=== PATIENT | female | born 1930 | race African-American/Black ===

== ENCOUNTER 2017-01-05 19:15 | Inpatient (IN) | payer OTHER ==
[~2017-01-05] VITALS: Ht 162.6 cm; Wt 63.5 kg
--- NOTE | ~2017-01-05 | CNG ---
[facility] [place] [address] CYTO-NONGYN REPORT PROCEDURE Name: KWASI DEL RIO Room #: 548-I DIS IN M.R.#: [id number] Admission: 01/05/17 Date of : [birth year] Discharge: 01/13/17 Report #: [id number] Path Case #: [id number] CYTOPATHOLOGY REPORT COLLECTION DATE: 01/11/2017 RECEIVED DATE: 01/11/2017 SUBMITTING PHYS: Dr. Saul Bear OTHER PHYS: CLINICAL HISTORY: Epigastric pain, Abd pain, Neurogenic bladder, N/V. SPECIMEN(S) RECEIVED: A.Pleural fluid, Right * * * * * * * * * * * * FINAL DIAGNOSIS: Pleural fluid, right: - No malignant epithelial cells identified. - Mesothelial cells and occasional predominantly chronic inflammatory cells identified. COMMENT: Properly controlled immunohistochemical stains are performed on the cell block. (Block A1) Calretinin: highlights scattered mesothelial cells CD68: stains numerous small collections of histiocytes Nate-EP4: non-reactive (CLW:; d/t: 01/13/17) PATHOLOGIST: Marisa Rivero M.D. REPORT ELECTRONICALLY SIGNED BY: Marisa Rivero M.D. DATE/TIME: 01/13/2017 16:37 * * * * * * * * * * * * GROSS PATHOLOGY: A. Pleural fluid, Right: The specimen is submitted unfixed, labeled "Kwasi Del Rio". Received by the Cytology Department is 15 mL of cloudy bright red fluid out of a total volume of 750 ml. One ThinPrep slide and a cell block were prepared. (clt 01.11.2017) SENIOR MECHANICAL DEVELOPMENT ENGINEER(S): LIV Gunter([facility]) INITIAL CPT CODE(S): A; 69559, 21173, 71708, 49204, 93543 Professional services performed by [facility] at [facility] [address] , [place], [place] [id number] [place] [address] [place] [address] CYTO-NONGYN REPORT PROCEDURE Name: KWASI DEL RIO Room #: 548-I [facility] IN ..#: [id number] Admission: 01/05/17 Date of : [birth year] Discharge: 01/13/17 Report #: [id number] Path Case #: [id number] Technical services performed by [facility] at [address] [place] [address]., [address], [place] [address]. [address], [address] [place] [address] PHONE: [phone] DIRECTOR: Shashi Knight M.D. * * * END OF REPORT * * *
--- NOTE | ~2017-01-05 | HC ---
[facility] [place] [address] CONSULTATION Name: KWASI MARKS Room #: 548-I ADM IN M.R.#: [id number] Admission: 01/05/17 Attend Phys: Saul Bear DO Discharge: Date of : [birth year] Report #: [id number] THIS REPORT FOR: //name// CC: Pepe Weber MD FAM unknown Saul Pang MD REQUESTING PHYSICIAN: Saul Bear DO. REASON FOR CONSULTATION: Possible right upper lobe spiculated mass and possible cancer. HISTORY OF PRESENT ILLNESS: The patient is an 86-year-old female who evidently first began her evaluation at [facility] earlier this year when they noticed some changes on her chest area. We do not have those records. We do have records from [facility] where she was admitted for chest pain. Recently, she was on diversion. There they had a CT scan which supposedly compared to an earlier CAT scan on December 14, this one done was on January 05, showed a right upper lobe spiculated subpleural nodule measuring 2.2 cm; some slightly enlarged mediastinal adenopathy including a pretracheal, I believe, and subcarinal and also possible retrocardiac/esophageal mass. I have since then had a chance to talk with Dr. Aryan Pang, who talked with a doctor who had seen her over at [facility]. Supposedly, at the time of EBUS, they thought this spiculated right upper lung mass was too small to biopsy. It was also not PET evident on a PET scan they had done, which we also have no records. There is also a pretracheal cyst and also some other lymph nodes that were worse and were biopsied were and were reportedly negative. Note we do have that PET scan or that EBUS bronchoscopy report. The patient states that she maybe had some type of EGD at [facility] about a year ago. The patient is here for just for a generalized chest discomfort that is fairly nonspecific, may be a hiatal hernia. She has no prior cancer. Has not had any significant weight change lately. No fevers, no chills. Does have the cardiac chest discomfort. She reports of having had some right upper quadrant epigastric discomfort, nausea and vomiting, though her vomiting did not relieve her discomfort. This began a few days prior to admission. She also had been having pain on inspiration and coughing. Has been drinking some liquids, but unable to eat solids. The patient reports a history of peptic ulcer disease and a hiatal hernia. PAST MEDICAL HISTORY: Past history is notable for the recent right upper lobe spiculated mass with questionable changes including small pleural effusions. Also a history of hypertension; subtle pulmonary embolus, I think, it was diagnosed about on 12/14. It got resolved on a CT scan from 01/05/[address] [place] [address] CONSULTATION Name: KWASI MARKS Room #: 548-I ADM IN M.R.#: [id number] Admission: 01/05/17 Attend Phys: Saul Bear DO Discharge: Date of : [birth year] Report #: [id number] [facility]. Also a history of anemia with hemoglobin of 9.4 recently. Also a history of anxiety and also history of chronic renal insufficiency with a creatinine around 1.2 to 1.4, with an estimated creatinine clearance of around 35-55. ALLERGIES: None known. MEDICATIONS: Prior to this included Lovenox, Neurontin, lisinopril, isosorbide and Zantac. 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 She is originally from [place], had 9 children, smokes and stopped drinking alcohol about 10-[address] FAMILY HISTORY: It sounds like there is some heart disease in family remembers. No one with cancer that she could specifically tell, but I think one of her children may have had a seizure disorder, one had a heart attack. LABORATORY DATA: Lab work here is notable for a creatinine of 1.2. Liver functions normal. Calcium is 8. Albumin 2.4. White count 12 on admission; hemoglobin currently 9.4, down from 12.1 on admission; MCV 82 and platelets 165,000. Differential fairly normal. U/A without red cells. Total bilirubin was normal. PHYSICAL EXAMINATION: GENERAL: The patient appears her stated age. VITAL SIGNS: Height is 5 feet 4, 162.6 cm. Weight 140 pounds, which is 63.5 kilograms. Blood pressure 172/66, O2 sat 95, respirations 16, pulse 82 and temperature 99. It has been up as high as 100.1. HEENT: Face is symmetrical. Dentition poor. LUNGS: Have some slight rhonchi in the right base. No wheezes. LYMPHATICS: No enlarged lymph nodes in the supraclavicular, cervical, axillary or inguinal region. ABDOMEN: Soft, without masses. EXTREMITIES: Without clubbing or cyanosis. There may be trace edema. ASSESSMENT AND PLAN: 1. Right upper lobe spiculated subpleural nodule (PET at [facility] was not very avid and they thought this was too small to biopsy) with a pretracheal lymph node (negative by FNA at [facility] EBUS), retroesophageal mass (cyst appearance on EBUS at [facility]), mediastinal lymph node enlargement (calcifications present at [facility] on their exam) and small bilateral right greater than left pleural effusions (not tapped yet) - this is the information received verbally from [facility] [place] [address] [place] [address] CONSULTATION Name: KWASI MARKS Room #: 548-I ADM IN .R.#: [id number] Admission: 01/05/17 Attend Phys: Saul Bear DO Discharge: Date of : [birth year] Report #: [id number] Bird here who had talked with a court magistrate at [facility], though we are still trying to get the PET scan and EBUS. I talked with Dr. Pang that at this time we are mostly worried about the right spiculated nodule that at this time was too small to biopsy. The patient was supposed to have followup at [facility] today, but is admitted here. We may consider a thoracentesis of right versus left to see if there is malignancy or infection. We may also need to continue a followup of the right upper lobe nodule and biopsy if it enlarges. At this time, we do not know for sure if this is cancer. We will also need to wait to see what the splenic changes on the CAT scan seen here look like on the PET scan there that may need followup. 2. Subtle pulmonary embolism this year at [facility], may be in November, on Lovenox. We will check ultrasound of the legs that was talked about, but never done at [facility]. That way, if we stop the Lovenox, we will have some idea whether there is a clot at risk to emboli before we stop the Lovenox, if we do. 3. Pleural effusion. Consider tap for cytology. 4. Hypertension, meds. 5. Tobacco abuse. Encouraged cessation. 6. Nerves. The patient is reportedly on Neurontin by report, but no history of neuropathy. 7. Renal insufficiency. Watch medicines and diet closely. 8. Anemia. We will check iron studies, TSH, B12, folate and retic count. <ELECTRONICALLY SIGNED> By: Mihir Olson MD 01/12/17 0802 [id number] [id number] Mihir Olson MD /nt
--- NOTE | ~2017-01-05 | HC ---
[facility] [address] CONSULTATION Name: KWASI MARKS Room #: 548-I ADM IN M.R.#: [id number] Admission: 01/05/17 Attend Phys: Saul Bear DO Discharge: Date of : [birth year] Report #: [id number] THIS REPORT FOR: //name// CC: Pepe Weber MD FAM unknown Saul Bear DO DATE OF SERVICE: 01/09/2017 REFERRING PROVIDER: Saul Bear DO REASON FOR CONSULTATION: Chest pain and a history of lung mass. HISTORY OF PRESENT ILLNESS: Our group was asked to see the patient in consultation while hospitalized at [facility]. An 86-year-old woman with a past pulmonary history significant for tobacco abuse, who was recently hospitalized at [facility] for chest pain, was found to have pulmonary embolism. During that stay, also was noted to have a 2-cm right upper lobe spiculated nodule and some mediastinal adenopathy. By her report, apparently had undergone what sounds like an endobronchial ultrasound evaluation and possible biopsy, but was inconclusive. She was continued on enoxaparin injections for anticoagulation of her pulmonary emboli; however, continued to have persistent chest pain, presented to the Emergency Department, was discharged with what she explains as esophageal reflux symptoms, but continued to have chest pain and was subsequently admitted here for further management. She has been under evaluation by the gastroenterology service for the last 4 days. No significant GI abnormalities being found; however, concerned over ongoing chest problems accounting for her chest pain, prompting consultation. The patient has noted some scant hemoptysis, associated with scant sputum production. Denies any fevers, chills or sweats. Denies any significant shortness of breath at this time, does have some ongoing chest pain she relates to the sternal area, sometimes to the epigastric area. Somewhat sharp in nature, but does also feel like a pressure sensation, notes somewhat better since admission. It sounds like related to morphine administration. Currently, she is resting comfortably in bed. ALLERGIES: None known. PAST MEDICAL HISTORY: 1. History of pulmonary nodule with mediastinal adenopathy as described. Ongoing workup by her cash management clerk at [facility]. The patient does not know the name. 2. History of tobacco abuse. 3. Hypertension. 4. Recent pulmonary embolism noted in 11/2016. [facility] [address] [place] [address] CONSULTATION Name: KWASI MARKS Room #: 548-I [facility] IN ..#: [id number] Admission: 01/05/17 Attend Phys: Saul Bear DO Discharge: Date of : [birth year] Report #: [id number] OUTPATIENT MEDICATIONS: Include: 1. Lovenox 100 mg daily. 2. Oxycodone. 3. Hydrocodone. 4. Lisinopril. 5. Gabapentin. 6. Ranitidine. SOCIAL HISTORY: The patient is an active smoker. No significant alcohol consumption. FAMILY HISTORY: Noncontributory due to advanced age. REVIEW OF SYSTEMS: As described in HPI, otherwise negative. PHYSICAL EXAMINATION: VITAL SIGNS: Afebrile, pulse 80s, respiratory rate 18 and blood pressure 172/78. GENERAL: This is an elderly woman, no distress. EARS, NOSE AND THROAT: Clear oropharynx. Mallampati I airway. No thrush. NECK: Supple, no lymphadenopathy. LUNGS: Markedly diminished in the right base with some mild bronchial breath sounds greater than left. No wheezes are appreciated. CARDIOVASCULAR: Heart was regular. No murmurs noted. ABDOMEN: Soft and nontender. No masses or hepatosplenomegaly. EXTREMITIES: Without edema. They are warm with 2+ pulses. LABORATORY DATA: White blood cell count 12,000, hemoglobin 9, hematocrit 28 and platelet count 165. Sodium 139, potassium 3.6, chloride 107, bicarbonate 21, BUN 12, creatinine 1.2 and glucose 93. DIAGNOSTIC DATA: Chest x-ray done yesterday morning reveals small bilateral pleural effusions, right greater than left, with cardiomegaly. No masses noted. IMPRESSION: 1. Chest pain of unclear etiology, likely related to pulmonary emboli and/or pleural effusions noted on CT abdomen. There appeared to be a subcarinal mass, which may be responsible; however, it appears that this may be a large hiatal hernia, but it is unclear. Would further evaluate chest abnormalities and may need thoracentesis to further evaluate. 2. Recent pulmonary embolism. Continue Lovenox for now for anticoagulant therapy. 3. Pulmonary nodule with associated mediastinal adenopathy. Obtain further records regarding recent, what sounds like, bronchoscopy with endobronchial [address] [address] CONSULTATION Name: KWASI MARKS Room #: 548-I ADM IN M.R.#: [id number] Admission: 01/05/17 Attend Phys: Saul Bear DO Discharge: Date of : [birth year] Report #: [id number] ultrasound and possible biopsies from [facility] on the [place]. 4. Hemoptysis. May require repeat bronchoscopy to further evaluate. Suspect it may be related to ongoing anticoagulant therapy, in addition to some other pulmonary process. Possibly lower respiratory infection versus a malignant process. 5. Hypertension. 6. Pleural effusions. PLAN: As outlined above. We will follow along with you. Thank you for requesting our suggestions. <ELECTRONICALLY SIGNED> By: Aryan Pang MD 01/11/17 1434 1541 [id number] Aryan Pang MD /nt
--- NOTE | ~2017-01-05 | HC ---
[facility] [place] [address] CONSULTATION Name: KWASI MARKS Room #: 548-I ADM IN M.R.#: [id number] Admission: 01/05/17 Attend Phys: Saul Bear DO Discharge: Date of : [birth year] Report #: [id number] THIS REPORT FOR: //name// CC: FAM unknown Saul Bear DO DATE OF SERVICE: 01/06/2017 GASTROENTEROLOGY CONSULTATION PATIENT OF: Saul Bear DO. HISTORY OF PRESENT ILLNESS: This is a very pleasant 86-year-old -Mexican female whom I am asked to evaluate for right upper quadrant and epigastric pain associated with nausea and vomiting. The patient states that vomiting did not relieve her pain whatsoever. She says this all began a few days ago after she tried to lift a really heavy flower pot up on top of her television cabinet. Since then, she says she has been having severe pain with deep inspiration and coughing and has had no appetite. She has been drinking some liquids, but not able to eat anything. The patient has a history of peptic ulcer disease and hiatal hernia. She was recently seen in the [facility] emergency room, I believe, as recently as yesterday or the day before and was apparently discharged home. She states that she has had either an EGD of some sort or some type of upper GI imaging that involved a scope, possibly a bronchoscopy. We will try to obtain those records from [facility]' emergency room. The patient and her friend are unfortunately not good historians. The patient also tells me that she is being treated for a blood clot in her lung and gets injections twice a day of Lovenox. She was diagnosed recently in the emergency room at [facility] with a neurogenic bladder and a Martinez catheter was placed for relief of distended urinary bladder. PAST MEDICAL HISTORY: In addition to the above, includes hypertension, pulmonary embolism, peptic ulcer disease, the neurogenic bladder and the hiatal hernia. There were some abnormalities on some imaging that she has had that suggested that she might have a problem in her lungs besides the pulmonary embolism. PAST SURGICAL HISTORY: Significant for the cholecystectomy. ALLERGIES: No known drug allergies. MEDICATIONS: Prior to admission included Lovenox 100 units at bedtime, Percocet, Waymart, lisinopril, Neurontin and Zantac. SOCIAL HISTORY: The patient does smoke every day. She drinks alcohol [address] [address] CONSULTATION Name: KWASI MARKS Room #: 548-I [facility] IN .R.#: [id number] Admission: 01/05/17 Attend Phys: Saul Bear DO Discharge: Date of : [birth year] Report #: [id number] occasionally, usually on special occasions only. FAMILY HISTORY: I will have to clarify with her. She says that she herself personally has had a colonoscopy that was normal in the past, but she cannot remember when it was. REVIEW OF SYSTEMS: She denies any dysphagia or odynophagia. She has had gastroesophageal reflux symptoms in the past, but not recently. She does have a large hiatal hernia that apparently was seen on the CT scan she had here. She has a history of peptic ulcer disease, diagnosed many years ago. She said it has never bothered her. She has had nausea and vomiting. She has had substernal and right sternal chest pain recently after lifting a heavy flower pot as above. She complains of pain that radiates straight through into her back, from front to back. She also complains of right-sided chest pain that radiates around her right side and is worse with deep inspiration, that I suspect may be related to a skeletal injury. She complains of pain in the right upper quadrant and the epigastrium as well. She denied any constipation or diarrhea. She denies any hematemesis, hematochezia or melena. She denies having any jaundice or hepatitis or pancreatitis, but she has had her gallbladder out, she says. She denies any fevers or chills. PHYSICAL EXAMINATION: GENERAL: Reveals a well-developed, well-nourished 86-year-old -Mexican female, who is in obvious distress and really cannot get comfortable, as she is wiggling around in bed, trying to alleviate this chest pain that she is having. HEENT: She is normocephalic, atraumatic and anicteric. HEART: Irregularly irregular this morning. I asked if she had an irregular heartbeat and she thought that at times she did have an irregular heartbeat, but I do not know that the words atrial fibrillation rang any bells with her. She is a difficult historian. She does seem to have a systolic murmur in the aortic listening post area. LUNGS: Clear to auscultation now in all oropeza. ABDOMEN: Soft. Bowel sounds are present in all 4 quadrants. There is no palpable organomegaly or mass. There is tenderness in the epigastrium and the right upper quadrant to deep palpation. There is no rebound or guarding. EXTREMITIES: Warm and dry. NEUROLOGIC: She appears to be grossly intact, without lateralizing signs, but I did not test her extensively neurologically. RADIOLOGIC DATA: CT scan of the abdomen shows a mass in the posterior mediastinum, consistent with a large hiatal hernia. She has small bilateral pleural effusions and mild basilar pulmonary atelectasis and infiltrates. She has a density in her left kidney with a well-defined vascular margin that is concerning for a renal infarct. She has bilateral cysts in her kidneys and she did have marked bladder distention. She does have a Martinez catheter in place now. [facility] [address] [place] [address] CONSULTATION Name: KWASI MARKS Room #: 548-I ADM IN ..#: [id number] Admission: 01/05/17 Attend Phys: Saul Bear DO Discharge: Date of : [birth year] Report #: [id number] SIGNIFICANT LABORATORY DATA: Lactic acid level is 1.2. BUN is 16 and creatinine is 1.4 on admission. Her AST on admission was 442, ALT 285 and alkaline phosphatase 153. Total bilirubin is 1.2, direct bilirubin is 0.6. Lipase was 69. Her white blood cell count this morning of 11.2, up from 9.2; her hemoglobin went for 12.1 yesterday down to 11.5 and platelet count is stable at 188,000. IMPRESSION: 1. Substernal and right-sided chest pain that radiates around into her back after she lifted a heavy flower pot up on top of her television recently. She did not feel anything pop, but has had pain in this distribution since she lifted that flower pot. She states it is worse with inspiration and coughing. It is also very tender to palpation at the sternal junction on the right side in the middle of her chest. 2. Nausea and vomiting, right upper quadrant and epigastric pain. The vomiting did not affect the epigastric and right upper quadrant pain in any way. The patient has had a cholecystectomy. 3. Elevated liver enzymes, diffuse. 4. Probable neurogenic bladder. 5. Large hiatal hernia. 6. 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 This is a small segment that is involved. 7. History of hypertension. 8. Pulmonary embolism recently. The patient is on Lovenox. 9. History of peptic ulcer disease. 10. Long-term smoker. RECOMMENDATIONS AND PLANS: I suggested the patient had possibly EGD. She believes that she had this done this past week at [facility] on the [place]; she is not sure. We will obtain the records from [facility] instead today and I will review those and see what has been done there. It does sound like this might be a musculoskeletal pain in part from lifting the heavy vase. However, the patient does have a recently diagnosed pulmonary embolism as well that may be causing some amount of pain in her chest. With regard to her elevated liver enzymes, we will obtain an ultrasound of the liver and PIPIDA scan to make sure that there is ductal patency. The patient is status post cholecystectomy. We will continue PPIs. Suggest evaluation of left renal infarction. Recommend smoking cessation. [address] [address] CONSULTATION Name: KWASI MARKS Room #: 548-I ADM IN M.R.#: [id number] Admission: 01/05/17 Attend Phys: Saul Bear DO Discharge: Date of : [birth year] Report #: [id number] We will repeat her liver enzymes in the morning. We are going to obtain some right rib x-rays on her to evaluate this pain with inspiration. Thank you very much once again for allowing me to participate in her care, Dr. Bear. <ELECTRONICALLY SIGNED> By: Adeline Pro DO 01/07/17 0016 1003 1717 Adeline Pro DO /nt
--- NOTE | ~2017-01-05 | EKG ---
[address] [place] [address] ELECTROCARDIOGRAM REPORT Name: KWASI MARKS Room #: 548-I ADM IN M.R.#: [id number] Admission: 01/05/17 Attend Phys: Saul Bear DO Discharge: Date of : [birth year] Report #: [id number] THIS REPORT FOR: //name// [facility] Test Date: 2017-01-06 Test Time: 12:23:39 Pat Name: KWASI MARKS Department: Room: 548 I Gender: F Pediatric Clinical Dietician: Shagufta POSADAS : 1930 Requested By: Saul Bear Order Number: [id number] MD: Waylon Martinez Measurements Intervals [place] Rate: 77 P: 57 [place]: 142 QRS: 42 QRSD: 87 T: 118 QT: 351 QTc: 398 Interpretive Statements Sinus rhythm Atrial premature complex Nonspecific ST and T wave abnormality No previous ECG available for comparison Electronically Signed On 01-07-2017 8:26:51 CDT by Waylon Martinez [email or web address] <ELECTRONICALLY SIGNED> By: Waylon Martinez MD, [facility] 01/07/17 0826 1223 1223 Waylon Martinez MD, FACC /EPI
--- NOTE | ~2017-01-05 | 2DMMODE ---
[facility] [place] [address] 2 D/M-MODE ECHOCARDIOGRAM Name: KWASI MARKS Room #: 548-I ADM IN .R.#: [id number] Admission: 01/05/17 Attend Phys: Saul Bear, Discharge: Date of : [birth year] Date of Service: 01/10/17 1457 Report #: [id number] THIS REPORT FOR: //name// APPROVED REPORT EXAM: Comprehensive 2D, Doppler, and color-flow Echocardiogram Patient Location: Bedside/Room 548 Blood Pressure: 170/60 mmHg HR: 82 bpm Rhythm: NSR Other Information Study Quality: Adequate Indications Chest pain, recent PE. Hx: HTN, tobacco abuse. 2D Dimensions RVDd: 30.83 mm LVEF(%): 51.54 (>50%) IVSd: 9.69 (7-11mm) LVOT Diam: 19.94 (18-24mm) LVDd: 42.52 mm PWd: 9.88 (7-11mm) Ascending Aorta: 35.30 mm LVDs: 31.43 (25-40mm) Aortic Root: 35.00 mm Nunez's LVEF: 51.54 % Aortic Valve AoV Peak Yonatan.: 2.44 m/s AI PHT: 524.13 ms AO Peak Gr.: 23.79 mmHg LV Max P.78 mmHg AO V2 VTI: 450.12 mm LV Max: 1.48 m/s AI Vmax: 5.50 m/s AI Davidson: 3.04 m/s2 Mitral Valve MV PHT: 105.25 ms MV E Max Yoantan.: 0.56 m/s E/A Ratio: 0.6 MV A Yonatan.: 0.87 m/s MV Decel. Time: 362.95 ms TDI E/Lateral E': 12.00 E/Medial E': 16.00 Pulmonary Valve [facility] [address] [place] [address] 2 D/M-MODE ECHOCARDIOGRAM Name: KWASI MARKS Room #: 548-I [facility] IN ..#: [id number] Admission: 01/05/17 Attend Phys: Saul Bear, Discharge: Date of : [birth year] Date of Service: 01/10/17 1457 Report #: [id number] PV Peak Yonatan.: 1.04 m/s PV Peak Gr.: 4.31 mmHg Tricuspid Valve TR Peak Yonatan.: 3.73 m/s RAP Estimate: 5.00 mmHg TR Peak Gr.: 56.00 mmHg RVSP: 61.00 mmHg Left Ventricle The left ventricle is normal size. There is normal LV segmental wall motion. Mild basal septal hypertrophy is present. Left ventricular systolic function is normal. LVEF is 60%. Grade I - abnormal relaxation pattern. Right Ventricle The right ventricle is normal size. The right ventricular systolic function is normal. Atria The left atrium size is normal. The right atrium size is normal. Aortic Valve Aortic valve is mild to moderately calcified. Mild aortic regurgitation. Mild aortic stenosis. Mitral Valve Mitral valve leaflets are mildly thickened. Trace mitral regurgitation. Tricuspid Valve The tricuspid valve is normal in structure. There is mild to moderate tricuspid regurgitation. The right atrial pressure is estimated at 5 mmHg. Right ventricular systolic pressure is estimated at 61 mmHg. There is moderate pulmonary hypertension. Pulmonic Valve Pulmonic valve is not well visualized. Great Vessels The aortic root is normal in size. The ascending aorta is normal in size. IVC is normal in size and collapses >50% with inspiration. Pericardium There is no pericardial effusion. Right pleural effusion noted. [address] [address] 2 D/M-MODE ECHOCARDIOGRAM Name: KWASI MARKS Room #: 548-I [facility] IN ..#: [id number] Admission: 01/05/17 Attend Phys: Saul Bear, Discharge: Date of : [birth year] Date of Service: 01/10/17 1457 Report #: [id number] <Conclusion> The left ventricle is normal size. LVEF is 60%. Aortic valve is mild to moderately calcified. Mild aortic regurgitation. Mild aortic stenosis. Mitral valve leaflets are mildly thickened. Trace mitral regurgitation. There is mild to moderate tricuspid regurgitation. The right atrial pressure is estimated at 5 mmHg. Right ventricular systolic pressure is estimated at 61 mmHg. There is moderate pulmonary hypertension. <ELECTRONICALLY SIGNED> By: Morales Guillen MD 01/10/17 1457 145 145 Morales Guillen MD /INF
[2017-01-05 19:16] VITALS: BP 213/90
[2017-01-05] MEDS ORDERED: PERCOCET PO (19:33)
[2017-01-05] MEDS ORDERED: ENOXAPARIN100 MG/11 SUBQ (19:33)
[2017-01-05] MEDS ORDERED: NORCO 5-325 TA1 EACH PO (19:34)
[2017-01-05] MEDS ORDERED: LISINOPRIL10 MG PO (19:34)
[2017-01-05] MEDS ORDERED: ZANTAC 150MG T150 MG PO (19:34)
[2017-01-05] MEDS ORDERED: NEURONTIN 300300 M1 PO (19:34)
[2017-01-05 20:07] LABS: HEMATOCRIT 36.2 % (37.0-47.0); HEMOGLOBIN 12.1 gm/dL (12.0-15.0); MCH 27.5 pg (26.0-34.0); MCHC 33.5 g/dL (28.0-37.0); PLATELET COUNT 199 thou/uL (150-400); RBC 4.41 mil/uL (4.20-5.00); RDW 15.3 % (10.5-14.5); WBC 9.2 thou/uL (4.0-11.0)
[2017-01-05 20:09] LABS: MANUAL DIFF YES
[2017-01-05 20:11] LABS: URINE BILIRUBIN NEGATIVE (Negative); URINE BLOOD NEGATIVE (Negative); URINE COLOR YELLOW; URINE GLUCOSE-RANDOM* NEGATIVE (Negative); URINE KETONES NEGATIVE (Negative); URINE NITRITE NEGATIVE (Negative); URINE PROTEIN (DIPSTICK) NEGATIVE (Negative); URINE SPECIFIC GRAVITY <= 1.005 (1.003-1.035)
[2017-01-05 20:20] LABS: ALBUMIN 3.3 g/dL (3.4-5.0); CALCIUM 8.6 mg/dL (8.5-10.1); CREATININE 1.4 mg/dL (0.6-1.3); DIRECT BILIRUBIN 0.6 mg/dL (<0.1-0.3); TOTAL BILIRUBIN 1.2 mg/dL (<0.1-1.0); TOTAL PROTEIN 7.4 g/dL (6.4-8.2)
[2017-01-05 20:25] LABS: ABSOLUTE NEUTROPHILS 6.5 thou/uL (1.4-8.2); TOTAL CELL COUNT 100
[2017-01-05 23:46] VITALS: BP 145/61
[2017-01-06 01:26] LABS: HEMATOCRIT 36.9 % (37.0-47.0); HEMOGLOBIN 12.2 gm/dL (12.0-15.0); MCH 27.1 pg (26.0-34.0); MCV 82.1 fL (80.0-100.0); RBC 4.5 mil/uL (4.20-5.00); RDW 15.7 % (10.5-14.5); WBC 10.9 thou/uL (4.0-11.0)
[2017-01-06 01:28] LABS: CALCIUM 8.9 mg/dL (8.5-10.1); CREATININE 1.5 mg/dL (0.6-1.3)
[2017-01-06 04:00] VITALS: BP 183/81
[2017-01-06 05:29] LABS: HEMATOCRIT 35.5 % (37.0-47.0); HEMOGLOBIN 11.5 gm/dL (12.0-15.0); MCH 27.1 pg (26.0-34.0); MCHC 32.3 g/dL (28.0-37.0); MCV 83.7 fL (80.0-100.0); RBC 4.24 mil/uL (4.20-5.00); RDW 15.5 % (10.5-14.5); WBC 11.2 thou/uL (4.0-11.0)
[2017-01-06 05:56] LABS: ALBUMIN 3.2 g/dL (3.4-5.0); CREATININE 1.4 mg/dL (0.6-1.3); POTASSIUM 3.9 mmol/L (3.5-5.1); TOTAL BILIRUBIN 0.8 mg/dL (<0.1-1.0); TOTAL PROTEIN 6.6 g/dL (6.4-8.2)
[2017-01-06 08:07] VITALS: BP 163/67
[2017-01-06 12:53] LABS: CK-MB MASS 0.6 ng/mL (<0.5-3.6); TROPONIN-I < 0.04 ng/mL (<0.04-0.07)
[2017-01-06 15:57] VITALS: BP 178/83
[2017-01-06 19:29] VITALS: BP 147/56
[2017-01-07 04:00] VITALS: BP 148/55
[2017-01-07 04:22] LABS: HEMATOCRIT 28.8 % (37.0-47.0); HEMOGLOBIN 9.6 gm/dL (12.0-15.0); MCH 27.3 pg (26.0-34.0); MCHC 33.3 g/dL (28.0-37.0); MCV 82.2 fL (80.0-100.0); PLATELET COUNT 163 thou/uL (150-400); RDW 14.9 % (10.5-14.5); WBC 13.6 thou/uL (4.0-11.0)
[2017-01-07 04:35] LABS: CALCIUM 8.4 mg/dL (8.5-10.1); CREATININE 1.5 mg/dL (0.6-1.3); MANUAL DIFF YES; POTASSIUM 3.8 mmol/L (3.5-5.1)
[2017-01-07 04:47] LABS: ALBUMIN 2.7 g/dL (3.4-5.0); DIRECT BILIRUBIN 0.3 mg/dL (<0.1-0.3); TOTAL BILIRUBIN 0.8 mg/dL (<0.1-1.0); TOTAL PROTEIN 6.2 g/dL (6.4-8.2)
[2017-01-07 05:14] LABS: ABSOLUTE NEUTROPHILS 7.3 thou/uL (1.4-8.2); TOTAL CELL COUNT 100
[2017-01-07 10:03] VITALS: BP 168/72
[2017-01-07 15:55] VITALS: BP 144/60
[2017-01-07 22:45] VITALS: BP 136/62
[2017-01-08 05:56] VITALS: BP 130/60
[2017-01-08 06:01] LABS: ABSOLUTE NEUTROPHILS 7.7 thou/uL (1.4-8.2); BASOPHILS 0.4 % (0.0-2.0); EOSINOPHILS 2.6 % (0.0-3.0); HEMATOCRIT 28.3 % (37.0-47.0); HEMOGLOBIN 9.4 gm/dL (12.0-15.0); LYMPHOCYTES 21.9 % (24.0-44.0); MCH 27.3 pg (26.0-34.0); MCHC 33.1 g/dL (28.0-37.0); MCV 82.4 fL (80.0-100.0); MONOCYTES 11.4 % (1.0-8.0); PLATELET COUNT 165 thou/uL (150-400); POLYS 63.7 % (36.0-66.0); RBC 3.43 mil/uL (4.20-5.00); WBC 12.1 thou/uL (4.0-11.0)
[2017-01-08 06:06] LABS: MANUAL DIFF NO
[2017-01-08 06:22] LABS: ALBUMIN 2.4 g/dL (3.4-5.0); CREATININE 1.2 mg/dL (0.6-1.3); POTASSIUM 3.6 mmol/L (3.5-5.1); TOTAL BILIRUBIN 0.7 mg/dL (<0.1-1.0); TOTAL PROTEIN 6.2 g/dL (6.4-8.2)
[2017-01-08 08:10] VITALS: BP 184/81
[2017-01-08 15:59] VITALS: BP 184/60
[2017-01-08 19:25] VITALS: BP 204/80
[2017-01-09 05:55] VITALS: BP 173/70
[2017-01-09 09:00] VITALS: BP 172/78
[2017-01-09 16:37] VITALS: BP 162/68
[2017-01-09] MEDS ORDERED: METOPROLOL TART25 MG PO ×2 (16:54→17:04)
[2017-01-09] MEDS ORDERED: IMDUR 30 MG TAB30 M1 PO (16:54)
[2017-01-09] MEDS ORDERED: AMITRIPTYLINE H50 M2 PO (16:58)
[2017-01-09] MEDS ORDERED: PANTOPRAZOLE SO40 M1 PO (16:59)
[2017-01-09] MEDS ORDERED: AMLODIPINE BESY10 MG PO (16:59)
[2017-01-09] MEDS ORDERED: SERTRALINE HCL100 MG PO (17:00)
[2017-01-09] MEDS ORDERED: ZANAFLEX4 MG PO (17:00)
[2017-01-09] MEDS ORDERED: LOSARTAN POTAS100 MG PO (17:02)
[2017-01-09 20:27] VITALS: BP 170/60
[2017-01-10 03:52] VITALS: BP 146/50
[2017-01-10 16:55] VITALS: BP 153/69
[2017-01-10 19:28] VITALS: BP 150/76
[2017-01-11 04:00] VITALS: BP 179/63
[2017-01-11 08:12] VITALS: BP 172/66
[2017-01-11 10:18] LABS: ABSOLUTE RETIC COUNT 0.0911 10^6/uL; OBSERVED RETIC COUNT 2.39 % (0.6-2.6)
[2017-01-11 10:26] LABS: % SATURATION 17 % (20-39); IRON 33 ug/dL (50-170); TIBC 200 ug/dL (250-450); UIBC 167 ug/dL
[2017-01-11 13:13] LABS: APTT 29.3 Seconds (24.5-32.8); PROTIME 10.5 Seconds (9.3-11.4)
[2017-01-11 15:52] LABS: BF NUCLEATED CELLS 1505; BF RBC 1211320
[2017-01-11 15:56] VITALS: BP 167/3
[2017-01-11 17:02] LABS: CLARITY TURBID; COLOR RED; MANUAL DIFF YES; TOTAL VOLUME 60 mL
[2017-01-11 17:07] LABS: BF MACROPHAGE 55; BF NEUTROPHILS 12
[2017-01-11 20:00] VITALS: BP 133/74
[2017-01-12 04:00] VITALS: BP 100/54
[2017-01-12 09:04] VITALS: BP 116/63
[2017-01-12 10:08] LABS: BODY FLUID ALBUMIN 2.2 g/dL (()); BODY FLUID AMYLASE 124 U/L (()); BODY FLUID GLUCOSE 104 mg/dL (()); BODY FLUID LDH 236 IU/L (()); BODY FLUID PROTEIN 3.5 g/dL (())
[2017-01-12 15:33] VITALS: BP 114/77
[2017-01-12 20:00] VITALS: BP 119/61
[2017-01-13 04:00] VITALS: BP 125/91
[2017-01-13 08:45] VITALS: BP 131/77
[2017-01-13] MEDS ORDERED: ENOXAPARIN60 MG/0.1 SUBQ (11:52)
[2017-01-13 13:13] VITALS: BP 131/77
[2017-01-13 13:37] VITALS: BP 131/77
== END 2017-01-13 15:00 | disposition home health service (06) | DRG 183 ==
LOC: ER 19:15 → 5S 21:54 → EROBS 21:54 → 5S 23:48
PROVIDERS: Emergency Medicine; Family Medicine; Internal Medicine Gastroenterology; Internal Medicine Hematology & Oncology; Internal Medicine Pulmonary Disease; Nurse Practitioner
DX: S22.41XA Multiple fractures of ribs, right side, initial encounter for closed fracture (principal); N17.0 Acute kidney failure with tubular necrosis; E43 Unspecified severe protein-calorie malnutrition; R04.2 Hemoptysis; J90 Pleural effusion, not elsewhere classified; R59.0 Localized enlarged lymph nodes; K59.00 Constipation, unspecified; K44.9 Diaphragmatic hernia without obstruction or gangrene; N18.9 Chronic kidney disease, unspecified; F17.210 Nicotine dependence, cigarettes, uncomplicated; I12.9 Hypertensive chronic kidney disease with stage 1 through stage 4 chronic kidney disease, or unspecified chronic kidney disease; D64.9 Anemia, unspecified; F03.90 Unspecified dementia, unspecified severity, without behavioral disturbance, psychotic disturbance, mood disturbance, and anxiety; I70.1 Atherosclerosis of renal artery; Z86.711 Personal history of pulmonary embolism; I27.2 Other secondary pulmonary hypertension; Z28.21 Immunization not carried out because of patient refusal; Z87.11 Personal history of peptic ulcer disease; Z90.49 Acquired absence of other specified parts of digestive tract; Z79.899 Other long term (current) drug therapy; Z82.49 Family history of ischemic heart disease and other diseases of the circulatory system; Z87.81 Personal history of (healed) traumatic fracture; K21.9 Gastro-esophageal reflux disease without esophagitis
CPT/HCPCS: 10086

== ENCOUNTER 2017-01-16 13:47 | Inpatient (IN) | payer OTHER ==
[~2017-01-16] VITALS: Ht 162.6 cm; Wt 64.4 kg
--- NOTE | ~2017-01-16 | H ---
[facility] [address] HISTORY AND PHYSICAL Name: KWASI MARKS Room #: 426-P ADM IN M.R.#: [id number] Admission: 01/16/17 Attend Phys: Allison Palomares MD Discharge: Date of : [birth year] Report #: [id number] THIS REPORT FOR: //name// CC: Zachary Angulo CHIEF COMPLAINT: Odynophagia. HISTORY OF PRESENT ILLNESS: The patient is an 86-year-old female who was just hospitalized here, and discharged home on 01/13/2017. The patient was hospitalized for 8 days. The patient was seen and evaluated for abdominal pain, and at the same time, she was found to have right-sided pleural effusion, mediastinal lymphadenopathy, questionable retrocardiac mass, as well as subpleural small nodule. Unfortunately, patient and family members are extremely poor historians, they cannot provide me any details about what happened after the discharge from the hospital. 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 The patient also reportedly was diagnosed with pulmonary embolism in November 2016 at the [facility]. Again, no details are available. The patient tells me that she was on "injectable medication twice a day, and now she takes it once a day." Home medication list includes Lovenox 60 mg once a day. Currently, the patient is being admitted for severe odynophagia. The patient states the odynophagia started about a month ago, but it has become worse. Last few days, the patient has not been able to eat and drink. She came to the emergency room with these symptoms. PAST MEDICAL HISTORY: 1. Hypertension. 2. Depression. 3. Pulmonary embolism reported, but not confirmed. Diagnosed at [facility], in November 2016. HOME MEDICATIONS: Reviewed and documented in the patient's chart, please refer to the medication reconciliation section. FAMILY HISTORY: Reviewed and not pertinent to the patient's current condition. SOCIAL HISTORY: The patient is a current smoker. She does not drink alcohol. REVIEW OF SYSTEMS: As above in HPI section, all others negative. PHYSICAL EXAMINATION: [facility] [address] [place] [address] HISTORY AND PHYSICAL Name: KWASI MARKS Room #: 426-P [facility].#: [id number] Admission: 01/16/17 Attend Phys: Allison Palomares MD Discharge: Date of : [birth year] Report #: [id number] GENERAL: The patient is an elderly female who is in no apparent distress. VITAL SIGNS: Blood pressure is 145/56, heart rate is 64, respiration is 20, temperature is 99.9. HEENT: Pupils are equal. Eye movements are normal. The patient has anicteric sclerae. NECK: Supple. Dentition is poor. Oral mucosa is somewhat dry. RESPIRATORY: Chest moves symmetrically with breathing. LUNGS: Clear to auscultation bilaterally. Respiratory sounds are diminished, more on the right side. CARDIOVASCULAR: The patient has regular rhythm and rate. She has no murmurs, gallops or rubs. GASTROINTESTINAL: Abdomen is soft, nondistended and nontender. Bowel sounds are present. She has no hepatomegaly or splenomegaly. MUSCULOSKELETAL: The patient has no edema, cyanosis or clubbing. NEUROLOGIC: Grossly intact. The patient has no motor or sensory deficits. SKIN: Skin is dry and warm. The patient has no skin lesions. LABORATORY DATA: Basic metabolic profile is normal except with creatinine of 1.8. Albumin is 3.0. Liver function tests are normal. Coagulation profile is normal. CBC shows anemia with hemoglobin of 11.0, which is the patient's baseline. ASSESSMENT AND PLAN: 1. Severe odynophagia. GI team is consulted. The patient will likely need EGD. Consultation is very much appreciated. 2. Questionable lung cancer, mediastinal lymphadenopathy, right-sided subpleural nodule, and recent pleural effusion. The patient had thoracentesis during the admission here just few days ago. Cytology showed no malignancy. Again, the patient is unable to tell me what followup she had or whether she was finally diagnosed with cancer or not. She mentioned also biopsy, but she is not sure about the results. The patient has already been worked up by oncologist. I will kindly ask oncologist to reevaluate the patient while she is here, if she needs additional testing or treatment. 3. Pulmonary embolus, diagnosed in November of 2016, diagnosed at [facility]. History is obtained from previous H and P. As noted, the patient states that she was on Lovenox twice a day and now she takes Lovenox once a day per doctor's recommendation. She cannot recall doctor's name. It is possible that Lovenox was adjusted renally. I am ordering CT angiography of the chest while the patient is here. On the CT, we will also reevaluate her mediastinal lymphadenopathy, subpleural nodule as well as her retrocardiac mass that reportedly was not confirmed based on MRI. Of note, patient also had T-spine MRI while she was here and retrocardiac mass that was seen on the CT, turned out to be hiatal hernia. Again, the patient will be reevaluated for this. 4. Chronic kidney disease stage III, elevated creatinine to 1.8 from baseline of 1.4. Acute renal failure likely due to dehydration. The patient will be [facility] [place] [facility] [place] [address] HISTORY AND PHYSICAL Name: KWASI MARKS Room #: 426-P ADM IN M.R.#: [id number] Admission: 01/16/17 Attend Phys: Allison Palomares MD Discharge: Date of : [birth year] Report #: [id number] treated with IV fluids and will be reassessed. We will hold lisinopril for now. Hydralazine will be used as needed. 5. Deep venous thrombosis prophylaxis. As noted, the patient is on 60 mg of Lovenox once a day per outpatient medication list. This will be confirmed and Lovenox will be resumed as necessary. <ELECTRONICALLY SIGNED> By: Allison Palomares MD 01/22/17 1354 1821 05 Allison Palomares MD /nt
--- NOTE | ~2017-01-16 | EKG ---
[address] [address] ELECTROCARDIOGRAM REPORT Name: KWASI MARKS Room #: 426- ADM IN M.R.#: [id number] Admission: 01/16/17 Attend Phys: Allison Palomares MD Discharge: Date of : [birth year] Report #: [id number] THIS REPORT FOR: //name// [facility] Test Date: 2017-01-21 Test Time: 11:59:20 Pat Name: KWASI MARKS Department: Room: 426 Gender: F Rail Filler: PERLA : 1930 Requested By: Aryan Pang Order Number: [id number] MD: Marco Sinclair Measurements Intervals [place] Rate: 65 P: 1 [place]: 143 QRS: 43 QRSD: 104 T: 48 QT: 443 QTc: 461 Interpretive Statements Sinus rhythm Abnormal R-wave progression, late transition Left ventricular hypertrophy Nonspecific T abnormalities, anterior leads Electronically Signed On 01-21-2017 13:41:43 CDT by Marco Sinclair [email or web address] <ELECTRONICALLY SIGNED> By: Marco Sinclair MD 01/21/17 1341 1159 1159 Marco Sinclair MD /DALE
--- NOTE | ~2017-01-16 | HC ---
[facility] [place] [address] CONSULTATION Name: KWASI MARKS Room #: 426-P ADM IN M.R.#: [id number] Admission: 01/16/17 Attend Phys: Allison Palomares MD Discharge: Date of : [birth year] Report #: [id number] THIS REPORT FOR: //name// CC: Zachary Angulo REASON FOR CONSULTATION: Question of cancer with test having been pending. HISTORY OF PRESENT ILLNESS: The patient is an 86-year-old female who I had seen last month with a history of pulmonary embolus at [facility], I believe in November, who then had some questionable CT and CAT scan changes. The patient had undergone a PET scan and an EBUS over at [facility], all of which were unremarkable for cancer and also had 2 pleural effusion thoracentesis here with negative cytology. The plan was for the patient to follow up with her [facility] intensive care anaesthetist as she does not have a known history of recurrent cancer. The patient was readmitted for odynophagia which had been somewhat of an issue on her last admit. She tells me that she has not had any fevers or chills. She does not have any new abdominal pain, new arm or leg swelling, new constipation or diarrhea or blood in her urine or stool. PAST MEDICAL HISTORY: Past history, as mentioned above, is notable for: 1. The history of a past breast cancer, status post mastectomy. I believe this was on the left side. 2. She also has a history of the pulmonary embolism, as mentioned above. 3. History of mild anemia. 4. History of renal insufficiency. 5. History of right upper lobe spiculated subpleural nodule and they are still suspicious of a right upper lobe malignancy, but it was too small to biopsy at that time. We would consider biopsy with continued growth. 6. History of a saddle pulmonary embolus early this year on about 12/14/2016, has been on anticoagulation. 7. Pleural effusion that has been tapped twice. 8. Hypertension. 9. Tobacco abuse. 10. Nerves, since she is on Neurontin. 11. Renal insufficiency. 12. Also, history of anemia, thought to be iron deficient. We will consider oral iron if able to take it. Has checked TSH, B12 and folate, which were unremarkable. 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 Originally from [place], had 9 children. Smokes up until recently. Had stopped drinking alcohol may be 10-[address]. FAMILY HISTORY: Heart disease in several members and cancer not by her recollection. One of her children had a seizure disorder. CURRENT MEDICATIONS: Losartan 50, sertraline 100 daily, amlodipine 10 daily, amitriptyline 50 daily, lisinopril 10 daily, pantoprazole 40 daily, gabapentin 300 t.i.d., metoprolol 25 b.i.d., fentanyl p.r.n., hydralazine p.r.n., tizanidine 4 mg q.8h. p.r.n., hydrocodone p.r.n., Zofran p.r.n. and IV fluids. PHYSICAL EXAMINATION: GENERAL: The patient appears her stated age. VITAL SIGNS: Blood pressure is 170/69, O2 sat 94, respirations 20, pulse 67 and temperature is 99.1 this morning, had been 99.9 yesterday afternoon. HEENT: Face is symmetrical. LUNGS: Mostly clear, though right base is perhaps slightly dull. LYMPHATICS: No enlarged lymph nodes in the supraclavicular, cervical, axillary or inguinal region. ABDOMEN: Soft. EXTREMITIES: Without clubbing, cyanosis or edema. LABORATORY DATA: Labs this admit show a BUN of 14; creatinine 1.8 on admission, currently 1.6. Transaminases normal. Albumin 3. Iron from last admit; iron 33, TIBC 200, percent sat 17. Coags last admit had been normal. White count this admit 9.9, hemoglobin 11 and platelets 338,000. Also had had a ferritin of 493 last admit. TSH at 2.76. Absolute retic count 91 last admit. Folate 17 and B12 963 last admit. ASSESSMENT AND PLAN: 1. Right upper lobe mass, not known to be cancer, but slightly suspicious. Followup was to be per [facility] intensive care anaesthetist. Dr. Pang is aware of this. 2. Distant history of breast cancer, not known to be recurrent. 3. History of pulmonary embolus, anticoagulation. 4. Hypertension, medications. 5. Odynophagia, per GI. 6. Renal insufficiency, improved. 7. Nerves, on Neurontin and per others. <ELECTRONICALLY SIGNED> By: Mihir Olson MD 01/17/172002 0749 1456 Mihir Olson MD /nt
--- NOTE | ~2017-01-16 | CNG ---
[place] [address] CYTO-NONGYN REPORT PROCEDURE Name: KWASI DEL RIO Room #: 426-P ADM IN M.R.#: [id number] Admission: 01/16/17 Date of : [birth year] Discharge: Report #: [id number] Path Case #: [id number] CYTOPATHOLOGY REPORT COLLECTION DATE: 01/21/2017 RECEIVED DATE: 01/21/2017 SUBMITTING PHYS: Dr. Aryan Pang OTHER PHYS: Dr. Allison Angulo CLINICAL HISTORY: Odynophagia PROCEDURE: A. Passes performed by Dr. Pang yielding fluid. Two H and E slides Pass #1, two H and E slides Pass #4, two H and E Pass 9 (obtained by Dr. Pang after redirecting the needle), and 25 mL from needle rinsed in formalin were submitted to the lab. SPECIMEN(S) RECEIVED: A.EBUS guided Fine needle aspiration, lymph node 7 Passes 1,4,9 * * * * * * * * * * * * FINAL DIAGNOSIS: A. Lymph node 7, EBUS guided Fine needle aspiration: - No malignant cells identified. Groups of bronchial epithelial cells and lymphoid aggregates are identified in a background of obscuring blood. PATHOLOGIST: Jessi Aranda M.D. REPORT ELECTRONICALLY SIGNED BY: Jessi Aranda M.D. DATE/TIME: 01/24/2017 15:51 * * * * * * * * * * * * GROSS PATHOLOGY: A. EBUS guided Fine needle aspiration, lymph node 7 Passes 1,4,9: The specimen is labeled "Kwasi Del Rio". Received by the Cytology Department is two H and E slides for pass #1, two H and E slides for pass# 4, two H and E slides for pass #9 . Twenty-five mL of dark red fluid in formalin from the needle rinse is also submitted and one ThinPrep slide and a cell block only was prepared from this material. (clt 01.21.2017) IMMEDIATE EVALUATION: Pass 1: Per Dr. Aranda: Bronchial epithelial cells and blood. Pass 4: Per Dr. Aranda: Bronchial epithelial cells and blood. Pass 9 (obtained by Dr. Pang after redirecting the needle): Per Dr. Aranda: Crushed lymphoid cells, bronchial epithelial cells and blood. Professional services performed by [facility] at [address] [address] CYTO-NONGYN REPORT PROCEDURE Name: KWASI DEL RIO Room #: 426-P [facility] IN M.R.#: [id number] Admission: 01/16/17 Date of : [birth year] Discharge: Report #: [id number] Path Case #: [id number] , [place] [address] COMPLIANCE PARALEGAL(S): LIV Harvey(ASCP) INITIAL CPT CODE(S): A; 87188, 87885, 24185 A (PASS 9); 52953 Professional services performed by [facility] at [address], [place] [address] Technical services performed by [facility] at [address] [place] [address], [address], [place] [address]. CC: Dr. Zachary Oconnor [facility] [address] [place] [address], [address] [place] [address] PHONE: [phone] DIRECTOR: Shashi Knight M.D. * * * END OF REPORT * * *
--- NOTE | ~2017-01-16 | P ---
[facility] [place] [address] PROCEDURE REPORT Name: KWASI MARKS Room #: 426-P [facility] IN M.R.#: [id number] Admission: 01/16/17 Attend Phys: Allison Palomares MD Discharge: Date of : [birth year] Report #: [id number] THIS REPORT FOR: //name// CC: Zachary Angulo DATE OF SERVICE: 01/18/2017 PROCEDURE PERFORMED: Upper endoscopy with biopsies and esophageal dilation. HISTORY OF PRESENT ILLNESS: The patient is an 86-year-old female who has history of chest pain, dysphagia, and odynophagia. CT scan has shown questionable retrocardiac mass as well as mediastinal lymphadenopathy and pleural effusion. The patient apparently has undergone an EUS at a different facility, recently has undergone further workup by Dr. Aryan Pang including a bronchoscopy with aspiration as well as thoracentesis, both of which did not show malignant cells. There is still the concern; however, this may reflect a malignancy. She has been on PPI therapy. She has been complaining of difficulty swallowing her pills recently. She also has a history of pulmonary embolus. She has been on Lovenox. This was held last evening. The plan is for EGD. DESCRIPTION OF PROCEDURE: The risks and benefits of the procedure were explained to the patient and her family, those risks including, but not limited to bleeding, perforation, and the risk of sedation. They understood these risks and gave informed consent. Sedation was given using propofol and ketamine per anesthesia. Next, using a standard Magtoninon upper endoscope, the scope was placed in the patient's mouth and advanced under direct vision through the esophagus, stomach, and into the second portion of the duodenum. The upper esophagus was normal; however, in the mid esophagus, there appears to be some extrinsic compression. Also in this area, there were 2 ulcerations. No evidence of bleeding. The GE junction was normal. Overall, the gastric mucosa was normal in the fundus; however, in the body and antrum, a mild diffuse gastritis was noted with several small erosions. Biopsies were obtained to rule out H. pylori. There was no evidence of bleeding. The pylorus was normal and patent. The duodenal bulb, first and second portion were all normal. The scope was then brought back up into the patient's stomach and a Savary guidewire was inserted through the scope, leaving the wire place as the scope was then withdrawn. Next, Savary dilation with using a 48-Polish was then performed without difficulty. The wire and dilator were removed. The scope was reintroduced into the patient's stomach. There was no evidence of mucosal tear after dilation. Also, biopsies of the ulcer in the mid esophagus were obtained. These were sent for CMV and herpes. At this point, the scope was then withdrawn and the procedure terminated. The patient tolerated the procedure [address] [address] PROCEDURE REPORT Name: KWASI MARKS Room #: 426-P [facility] IN M.R.#: [id number] Admission: 01/16/17 Attend Phys: Allison Palomares MD Discharge: Date of : [birth year] Report #: [id number]. IMPRESSION: Extrinsic compression in the mid esophagus. This may be causing obviously her dysphagia. This may be secondary to mediastinal mass. In this location, there were 2 ulcerations, this may be due to pill esophagitis as pills may be getting stuck within this area . Biopsies were obtained also to rule out possible viral etiology. At this time, we would recommend continuing PPI therapy, Carafate, and we will proceed with an upper GI for further evaluation. Thank you for allowing me to participate in her care. <ELECTRONICALLY SIGNED> By: Pepe Weber MD 01/21/17 0820 1430 1909 Pepe Weber MD /nt
--- NOTE | ~2017-01-16 | S ---
[facility] [address] [place] [address] SURGICAL PATH RPT PROCEDURE Name: KWASI MARKS Room #: 426-P ADM IN M.R.#: [id number] Admission: 01/16/17 Date of : [birth year] Discharge: Report #: [id number] Path Case #: [id number] PATHOLOGY REPORT COLLECTION DATE: 01/18/2017 RECEIVED DATE: 01/19/2017 SUBMITTING PHYS: Dr. Pepe Weber OTHER PHYS: Dr. Zachary Palomares SPECIMEN(S) RECEIVED: A.Gastric bx B.Mid Esoph * * * * * * * * * * * * FINAL DIAGNOSIS: A. "Gastric bx", biopsy: - Gastric mucosa with reactive gastropathy and mild chronic gastritis with focal intestinal metaplasia; no dysplasia seen. (See comment) - Negative H. pylori immunohistochemical stain (block A1); control reacted appropriately. B. "Mid esoph", biopsy: - Esophageal squamous mucosa with extensive acute and chronic inflammation, ulceration and granulation tissue. (See comment) COMMENT: Within specimen A, clinical and endoscopic correlation is required to exclude the possibility of the intestinal metaplasia being a transition to small bowel/duodenal mucosa. Again, no dysplasia is seen. Within specimen B, properly-controlled immunohistochemical stains and special stains are performed. Block B1: HSV1*: negative for viral inclusions HSV2*: negative for viral inclusions CMV*: negative for viral inclusions AE1/AE3: no abnormal staining GMS: negative for fungal organisms Again, clinical and endoscopic correlation is recommended is recommended. (CLW:csd; d/t: 01/20/2017) PATHOLOGIST: Marisa Rivero M.D. REPORT ELECTRONICALLY SIGNED BY: Marisa Rivero M.D. [facility] [place] [address] SURGICAL PATH RPT PROCEDURE Name: KWASI MARKS Room #: 426-P [facility] IN ..#: [id number] Admission: 01/16/17 Date of : [birth year] Discharge: Report #: [id number] Path Case #: [id number] DATE/TIME: 01/21/2017 10:33 * * * * * * * * * * * * GROSS PATHOLOGY: A. Received in formalin labeled "Brown, Kwasi and gastric," are 3 segments of lawton soft tissue measuring 1.1 x 0.2 x 0.2 cm in aggregate dimensions and ranging from 0.3 to 0.4 cm in maximum dimension. The specimen is submitted entirely in cassette A1. B. Received in formalin labeled "Brown, Kwasi and mid esophagus," are 2 segments of lawton soft tissue measuring 0.8 x 0.3 x 0.2 cm in aggregate dimensions and measuring 0.3 and 0.5 cm in maximum dimension. The specimen is submitted entirely in cassette B1. (TTL; 01/19/2017) CLINICAL HISTORY: Dysphagia INITIAL CPT CODE(S): A; 24791, 30182 B; 73684, 53277, 34121, 40873, 12863, 36890 Professional services performed by [facility] at [facility] [address], [place] [address] Technical services performed by [facility] at [address] [place] [address], [address], [place] [address]. [facility] [address] [place] [address] PHONE: [phone] DIRECTOR: Shashi Knight M.D. * * * END OF REPORT * * *
--- NOTE | ~2017-01-16 | EKG ---
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
--- NOTE | ~2017-01-16 | P ---
[facility] [place] [place] [address] PROCEDURE REPORT Name: KWASI MARKS Room #: 426-P [facility] IN M.R.#: [id number] Admission: 01/16/17 Attend Phys: Allison Palomares MD Discharge: 01/24/17 Date of : [birth year] Report #: [id number] THIS REPORT FOR: //name// CC: Zachary Oconnor Dr. Allison Palomares Primary Care Physician Connor Angulo DATE OF SERVICE: 01/21/2017 PROCEDURE: Fiberoptic bronchoscopy with endobronchial ultrasound and fine-needle aspirates of subcarinal mass. INDICATION: Abnormal CT chest with subcarinal mass that is compressing esophagus. ASA classification class III. PROCEDURE NOTATION: After discussing risks and benefits of the planned procedure with the patient and daughter, Carleen, they desired to proceed. After obtaining informed consent, the patient was brought to the OR room 2 and placed under general endotracheal anesthesia by the anesthesia service. Please see their notes for further details on anesthesia. Once accomplished, white-light bronchoscope was advanced through the endotracheal tube until the distal trachea was seen. The endotracheal tube was repositioned in good position to allow good visualization with endobronchial ultrasound. Airways were quickly surveyed and appeared normal, except for some edema and extrinsic compression appears to the right bronchus intermedius through the medial portion. White-light bronchoscope was then removed and endobronchial ultrasound was then inserted. The different lymph node stations were briefly assessed, but as this has previously been done at [facility], much of this was abbreviated and the main areas of interest were observed. A large pretracheal cyst was noted measuring 18 mm in short-axis diameter. This was located about the 4R level. A 32-mm subcarinal complex mass-like structure that appeared somewhat necrotic was noted. There were some calcifications also noted. Several fine-needle aspirates were obtained. Both 25-gauge standard needle and 25-gauge core needles were obtained of the subcarinal area. A total of 11 passes were made with some tissue sent in formalin for histopathology. Rapid on-site pathology showed lots of blood noted as well as what appeared to be crushed lymphocytes. No RPMI was sent on these specimens. Final pathology is pending at this time. The patient tolerated well, with no significant blood loss. The patient is still in OR room 2 at the time of this dictation. Daughter unavailable immediately to discuss. <ELECTRONICALLY SIGNED> By: Aryan Pang MD 01/31/17 1807 1434 1503 Aryan Pang MD /nt
[~2017-01-16 13:47] MED LIST: AMITRIPTYLINE H50 M2 PO; AMLODIPINE BESY10 MG PO; ENOXAPARIN100 MG/11 SUBQ; ENOXAPARIN60 MG/0.1 SUBQ; IMDUR 30 MG TAB30 M1 PO; LISINOPRIL10 MG PO; LOSARTAN POTAS100 MG PO; METOPROLOL TART25 MG PO; NEURONTIN 300300 M1 PO; NORCO 5-325 TA1 EACH PO; PANTOPRAZOLE SO40 M1 PO; PERCOCET PO; SERTRALINE HCL100 MG PO; ZANAFLEX4 MG PO; ZANTAC 150MG T150 MG PO
[2017-01-16 13:54] VITALS: BP 151/61
[2017-01-16 15:20] LABS: ABSOLUTE NEUTROPHILS 6.2 thou/uL (1.4-8.2); BASOPHILS 1.2 % (0.0-2.0); EOSINOPHILS 2.8 % (0.0-3.0); HEMATOCRIT 32.9 % (37.0-47.0); LYMPHOCYTES 24.4 % (24.0-44.0); MCH 27.5 pg (26.0-34.0); MCHC 33.6 g/dL (28.0-37.0); MCV 81.8 fL (80.0-100.0); MONOCYTES 8.6 % (1.0-8.0); PLATELET COUNT 369 thou/uL (150-400); RBC 4.02 mil/uL (4.20-5.00); RDW 15.4 % (10.5-14.5); WBC 9.9 thou/uL (4.0-11.0)
[2017-01-16 15:22] LABS: MANUAL DIFF NO
[2017-01-16 15:29] LABS: ANION GAP 7 mmol/L (7-16); BUN 14 mg/dL (7-18); CALCIUM 8.8 mg/dL (8.5-10.1); CHLORIDE 105 mmol/L (98-107); CO2 24 mmol/L (21-32); CREATININE 1.8 mg/dL (0.6-1.3); GLUCOSE 99 mg/dL (70-99); POTASSIUM 4.8 mmol/L (3.5-5.1); SODIUM 136 mmol/L (136-145)
[2017-01-16 15:34] LABS: ALKALINE PHOSPHATASE 93 U/L (46-116); DIRECT BILIRUBIN < 0.1 mg/dL (<0.1-0.3); SGOT 26 U/L (15-37); SGPT 25 U/L (30-65); TOTAL BILIRUBIN 0.3 mg/dL (<0.1-1.0); TOTAL PROTEIN 7.4 g/dL (6.4-8.2)
[2017-01-16] MEDS ORDERED: PANTOPRAZOLE SO40 M1 PO (16:02)
[2017-01-16 17:20] VITALS: BP 147/69
[2017-01-16 17:32] VITALS: BP 136/52
[2017-01-16 20:00] VITALS: BP 149/56
[2017-01-17] VITALS: BP 170/69
[2017-01-17 06:26] LABS: ABSOLUTE NEUTROPHILS 9.6 thou/uL (1.4-8.2); BASOPHILS 0.6 % (0.0-2.0); EOSINOPHILS 2.2 % (0.0-3.0); HEMATOCRIT 31.4 % (37.0-47.0); HEMOGLOBIN 10.2 gm/dL (12.0-15.0); LYMPHOCYTES 19.3 % (24.0-44.0); MCH 26.7 pg (26.0-34.0); MCHC 32.5 g/dL (28.0-37.0); MCV 82.3 fL (80.0-100.0); MONOCYTES 7.7 % (1.0-8.0); PLATELET COUNT 338 thou/uL (150-400); POLYS 70.2 % (36.0-66.0); RBC 3.82 mil/uL (4.20-5.00); RDW 14.8 % (10.5-14.5); WBC 13.7 thou/uL (4.0-11.0)
[2017-01-17 06:33] LABS: CALCIUM 8.6 mg/dL (8.5-10.1); CREATININE 1.6 mg/dL (0.6-1.3); POTASSIUM 4.2 mmol/L (3.5-5.1)
[2017-01-17 06:34] LABS: MANUAL DIFF NO
[2017-01-17 08:55] VITALS: BP 144/45
[2017-01-17] MEDS ORDERED: ENOXAPARIN60 MG/0.1 SUBQ (11:18)
[2017-01-17] MEDS ORDERED: CLONIDINE0.1 PO (11:19)
[2017-01-17 15:50] VITALS: BP 167/82
[2017-01-17 19:26] VITALS: BP 168/70
[2017-01-18 04:00] VITALS: BP 175/73
[2017-01-18 05:49] LABS: ABSOLUTE NEUTROPHILS 4.9 thou/uL (1.4-8.2); BASOPHILS 0.6 % (0.0-2.0); HEMATOCRIT 30.9 % (37.0-47.0); HEMOGLOBIN 10.5 gm/dL (12.0-15.0); MCH 27.5 pg (26.0-34.0); MCHC 33.8 g/dL (28.0-37.0); MCV 81.3 fL (80.0-100.0); MONOCYTES 9.2 % (1.0-8.0); PLATELET COUNT 355 thou/uL (150-400); POLYS 56.2 % (36.0-66.0); RBC 3.81 mil/uL (4.20-5.00); RDW 14.9 % (10.5-14.5); WBC 8.6 thou/uL (4.0-11.0)
[2017-01-18 05:50] LABS: MANUAL DIFF NO
[2017-01-18 06:01] LABS: CALCIUM 8.7 mg/dL (8.5-10.1); CREATININE 1.3 mg/dL (0.6-1.3); POTASSIUM 4.1 mmol/L (3.5-5.1)
[2017-01-18 07:30] VITALS: BP 194/78
[2017-01-18 08:17] VITALS: BP 156/64
[2017-01-18 11:32] VITALS: BP 166/74
[2017-01-18 21:00] VITALS: BP 188/76
[2017-01-19 04:30] VITALS: BP 158/66
[2017-01-19 05:18] LABS: ABSOLUTE NEUTROPHILS 4.7 thou/uL (1.4-8.2); BASOPHILS 0.9 % (0.0-2.0); EOSINOPHILS 3.8 % (0.0-3.0); HEMATOCRIT 32.9 % (37.0-47.0); HEMOGLOBIN 10.8 gm/dL (12.0-15.0); LYMPHOCYTES 32.4 % (24.0-44.0); MCH 26.7 pg (26.0-34.0); MCHC 32.7 g/dL (28.0-37.0); MCV 81.5 fL (80.0-100.0); MONOCYTES 9.2 % (1.0-8.0); PLATELET COUNT 383 thou/uL (150-400); POLYS 53.7 % (36.0-66.0); RBC 4.03 mil/uL (4.20-5.00); RDW 14.8 % (10.5-14.5); WBC 8.7 thou/uL (4.0-11.0)
[2017-01-19 05:23] LABS: MANUAL DIFF NO
[2017-01-19 05:32] LABS: CALCIUM 9.3 mg/dL (8.5-10.1); CREATININE 1.4 mg/dL (0.6-1.3); MAGNESIUM 2.2 mg/dL (1.8-2.4)
[2017-01-19 07:24] VITALS: BP 159/50
[2017-01-19 10:25] VITALS: BP 159/50
[2017-01-19 15:32] VITALS: BP 155/65
[2017-01-19 20:00] VITALS: BP 156/62
[2017-01-20 04:00] VITALS: BP 165/76
[2017-01-20 07:46] VITALS: BP 183/74
[2017-01-20 15:33] VITALS: BP 142/70
[2017-01-20 20:00] VITALS: BP 164/87
[2017-01-21] VITALS (9 sets, daily range): BP systolic 154–184; BP diastolic 52–77
[2017-01-21 05:50] LABS: ABSOLUTE NEUTROPHILS 3.5 thou/uL (1.4-8.2); BASOPHILS 0.6 % (0.0-2.0); EOSINOPHILS 6.7 % (0.0-3.0); HEMATOCRIT 32.3 % (37.0-47.0); HEMOGLOBIN 10.6 gm/dL (12.0-15.0); MCHC 32.9 g/dL (28.0-37.0); MCV 82.1 fL (80.0-100.0); MONOCYTES 10.2 % (1.0-8.0); PLATELET COUNT 370 thou/uL (150-400); POLYS 43.5 % (36.0-66.0); RBC 3.93 mil/uL (4.20-5.00); WBC 8.1 thou/uL (4.0-11.0)
[2017-01-21 06:06] LABS: MANUAL DIFF NO
[2017-01-21 06:16] LABS: CREATININE 1.6 mg/dL (0.6-1.3); POTASSIUM 4.1 mmol/L (3.5-5.1)
[2017-01-22 04:00] VITALS: BP 136/72
[2017-01-22 08:17] VITALS: BP 155/65
[2017-01-22 10:38] LABS: ABSOLUTE NEUTROPHILS 10.4 thou/uL (1.4-8.2); BASOPHILS 0.9 % (0.0-2.0); EOSINOPHILS 0.3 % (0.0-3.0); HEMATOCRIT 34.8 % (37.0-47.0); HEMOGLOBIN 11.3 gm/dL (12.0-15.0); MCH 26.9 pg (26.0-34.0); MCHC 32.6 g/dL (28.0-37.0); MCV 82.4 fL (80.0-100.0); MONOCYTES 7.6 % (1.0-8.0); PLATELET COUNT 390 thou/uL (150-400); POLYS 71.2 % (36.0-66.0); RBC 4.22 mil/uL (4.20-5.00); RDW 15.2 % (10.5-14.5); WBC 14.6 thou/uL (4.0-11.0)
[2017-01-22 10:40] LABS: MANUAL DIFF NO
[2017-01-22 10:43] LABS: CALCIUM 9.5 mg/dL (8.5-10.1); CREATININE 1.9 mg/dL (0.6-1.3)
[2017-01-22 21:00] VITALS: BP 140/65
[2017-01-23 04:30] VITALS: BP 163/69
[2017-01-23 06:58] LABS: HEMATOCRIT 32.3 % (37.0-47.0); HEMOGLOBIN 10.6 gm/dL (12.0-15.0); MCH 26.9 pg (26.0-34.0); MCHC 32.9 g/dL (28.0-37.0); MCV 81.7 fL (80.0-100.0); RBC 3.95 mil/uL (4.20-5.00); RDW 15.3 % (10.5-14.5); WBC 12.1 thou/uL (4.0-11.0)
[2017-01-23 07:09] LABS: CALCIUM 9.2 mg/dL (8.5-10.1); CREATININE 1.8 mg/dL (0.6-1.3); POTASSIUM 4.2 mmol/L (3.5-5.1)
[2017-01-23 08:30] VITALS: BP 167/66
[2017-01-23 12:00] VITALS: BP 158/63
[2017-01-23 16:00] VITALS: BP 167/64
[2017-01-23 21:00] VITALS: BP 144/70
[2017-01-24 04:33] VITALS: BP 127/47
[2017-01-24 04:49] LABS: HEMATOCRIT 32.2 % (37.0-47.0); HEMOGLOBIN 10.6 gm/dL (12.0-15.0); MCH 26.9 pg (26.0-34.0); MCV 81.6 fL (80.0-100.0); RBC 3.94 mil/uL (4.20-5.00); RDW 15.6 % (10.5-14.5); WBC 10.3 thou/uL (4.0-11.0)
[2017-01-24 04:59] LABS: ALBUMIN 2.6 g/dL (3.4-5.0); CREATININE 1.7 mg/dL (0.6-1.3); POTASSIUM 4.4 mmol/L (3.5-5.1); TOTAL BILIRUBIN 0.3 mg/dL (<0.1-1.0); TOTAL PROTEIN 6.6 g/dL (6.4-8.2)
[2017-01-24 07:13] VITALS: BP 131/66
[2017-01-24] MEDS ORDERED: HYDROCODON-ACE1 EAC7 PO (09:59)
[2017-01-24 16:13] VITALS: BP 159/50
== END 2017-01-24 16:53 | disposition home health service (06) | DRG 204 ==
LOC: ER 13:47 → EROBS 16:25 → 4E 16:25
PROVIDERS: Emergency Medicine; Family Medicine; Hospitalist; Internal Medicine; Internal Medicine Endocrinology, Diabetes & Metabolism
PROC: 0DB68ZX Excision of Stomach, Via Natural or Artificial Opening Endoscopic, Diagnostic (ICD-10-PCS; principal; 2017-01-18)
PROC: 0DB28ZX Excision of Middle Esophagus, Via Natural or Artificial Opening Endoscopic, Diagnostic (ICD-10-PCS; principal; 2017-01-18)
PROC: 0BB28ZX Excision of Carina, Via Natural or Artificial Opening Endoscopic, Diagnostic (ICD-10-PCS; 2017-01-21)
DX: R91.8 Other nonspecific abnormal finding of lung field (principal); N17.9 Acute kidney failure, unspecified; J90 Pleural effusion, not elsewhere classified; E44.0 Moderate protein-calorie malnutrition; R13.10 Dysphagia, unspecified; R59.0 Localized enlarged lymph nodes; N18.3 Chronic kidney disease, stage 3 (moderate); K21.9 Gastro-esophageal reflux disease without esophagitis; F03.90 Unspecified dementia, unspecified severity, without behavioral disturbance, psychotic disturbance, mood disturbance, and anxiety; F41.9 Anxiety disorder, unspecified; I12.9 Hypertensive chronic kidney disease with stage 1 through stage 4 chronic kidney disease, or unspecified chronic kidney disease; H91.90 Unspecified hearing loss, unspecified ear; F17.210 Nicotine dependence, cigarettes, uncomplicated; F32.9 Major depressive disorder, single episode, unspecified; K20.9 Esophagitis, unspecified; I27.2 Other secondary pulmonary hypertension; I25.10 Atherosclerotic heart disease of native coronary artery without angina pectoris; E11.22 Type 2 diabetes mellitus with diabetic chronic kidney disease; Z90.49 Acquired absence of other specified parts of digestive tract; Z90.12 Acquired absence of left breast and nipple; Z87.11 Personal history of peptic ulcer disease; Z87.311 Personal history of (healed) other pathological fracture; Z85.3 Personal history of malignant neoplasm of breast
CPT/HCPCS: 10084; 50010; 62110; 62900; 64007; 70005

== ENCOUNTER 2017-01-29 20:48 | Inpatient (IN) | payer OTHER ==
[~2017-01-29] VITALS: Ht 162.6 cm; Wt 62.0 kg
--- NOTE | ~2017-01-29 | H ---
[facility] [place] [address] [place] [address] HISTORY AND PHYSICAL Name: KWASI MARKS Room #: 440-[facility] IN M.R.#: [id number] Admission: 01/29/17 Attend Phys: Remington Dukes Discharge: 01/31/17 Date of : [birth year] Report #: [id number] THIS REPORT FOR: //name// CC: FAM unknown Remington Dukes DATE OF SERVICE: 01/29/2017 ATTENDING PHYSICIAN: Remington Dukes M.D. PRIMARY CARE PHYSICIAN: Angeline Polanco M.D. CHIEF COMPLAINT: Weakness. HISTORY OF PRESENT ILLNESS: The patient is an 86-year-old -[place]ong[place] female, who was just recently admitted here at [facility] in December. She has also been seen recently at [facility] in November. 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 At some point during her evaluations, she was found to have a subcarinal mass, and she had a bronchoscopy and biopsy done, which did not show any malignant cells. She was also complaining of difficulty swallowing and pain with swallowing, and an EGD was done with a biopsy. The EGD did show that she had extrinsic compression in the mid esophagus felt to be related to this mass previously mentioned. There were 2 ulcers there, and she was recommended to continue with a PPI and add Carafate. The biopsies of that also did not show any malignant cells. She has also had a PET scan, which was negative for cancer and some pleural effusions which have been tapped that had negative cytology. She also has a known splenic mass. She has been seen by oncology, but as of this time, it does not sound like any cancer has been found. Since she was discharged from here recently, she has been home where she lives alone. She has been progressively getting weak. Her daughter attributed this to after she started on Neurontin. She also ____ was acting confused. She came into the ER complaining of weakness. She had also been experiencing some back pain and vomiting. She has been having a hard time ambulating because of her weakness. She says she has not been eating that well since she was discharged. She still feels like food and pills are getting stuck when she swallows. She did vomit once because of this. She denies any diarrhea. She denies any dysuria. She is not sure if she has been having any fevers or chills. In the ER, she was noted to have a UTI as well as elevated creatinine. Her last known creatinine was 1.7. She does have chronic kidney disease stage III. Prior CT had shown that she has high grade renal artery stenosis on the right with up to 95% stenosis, and on the left the renal artery was not even visualized and likely occluded. There was some accessory artery blood flow to the left kidney. I am not sure if this has been addressed in any way by Vascular. PAST MEDICAL HISTORY: Recent saddle pulmonary emboli, breast cancer, anemia, [facility] [address] [place] [address] HISTORY AND PHYSICAL Name: KWASI MARKS Room #: 440-P [facility] IN M.R.#: [id number] Admission: 01/29/17 Attend Phys: Remington Dukes Discharge: 01/31/17 Date of : [birth year] Report #: [id number] chronic kidney disease stage 3, known pulmonary nodule, hypertension, peptic ulcer disease, hiatal hernia, renal artery stenosis, splenic mass, diabetes and anxiety. PAST SURGICAL HISTORY: Left mastectomy and cholecystectomy. ALLERGIES: None. HOME MEDICATIONS: Amitriptyline 50 mg at bedtime, metoprolol 12.5 mg b.i.d., Lovenox 60 mg at bedtime, amlodipine 10 mg daily, Protonix 40 mg daily, sertraline 100 mg daily, losartan 100 mg daily, gabapentin 300 mg t.i.d., ranitidine 150 mg b.i.d., clonidine 0.1 mg b.i.d. p.r.n. and tizanidine p.r.n. SOCIAL HISTORY: The patient lives alone. She says she just quit smoking, not sure how long she had smoked. She does have 9 children. She has not used any alcohol in the last 10-15 years. She says she normally is able to ambulate independently up until recently. FAMILY HISTORY: Significant for heart disease and cancer. REVIEW OF SYSTEMS: A 12-point review of systems was reviewed with the patient, otherwise negative unless stated in the HPI. PHYSICAL EXAMINATION: GENERAL: The patient is a lethargic, frail-appearing female in no acute distress. VITAL SIGNS: Temperature max was 39.2, heart rate 87, respirations 15, blood pressure 138/58 and oxygen 92% on room air. HEENT: PERRLA. Sclerae are nonicteric. Oral mucosa is pink and dry. She does have some white coating on her tongue. NECK: Supple, no JVD noted. CARDIOVASCULAR: Normal S1 and S2. No murmurs, rubs or gallops. RESPIRATORY: Breath sounds are clear bilaterally. No wheezing or rhonchi. Breathing is nonlabored. ABDOMEN: Soft, nontender and nondistended with positive bowel sounds. VASCULAR: Trace bilateral ankle edema. Pedal pulses are 2+. NEUROLOGIC: The patient is alert and able to answer most questions mostly with 1-word responses. She was able to follow commands and is moving all extremities equally. LABORATORY AND DIAGNOSTIC DATA: WBC of 24.3, hemoglobin 11 and platelets 252. Sodium 135, potassium 4.9, BUN 31, creatinine 2.3 and glucose is 138. Troponins negative. AST is 73. INR 1.1. BNP is 2135, albumin is 2.8. Chest x-ray showed stable cardiomegaly. EKG showing sinus rhythm with left ventricular hypertrophy. UA showed 2+ blood, 3+ leukocyte esterase, many wbc's and many bacteria. [facility] [address] [place] [address] HISTORY AND PHYSICAL Name: KWASI MARKS Room #: [facility] IN M.R.#: [id number] Admission: 01/29/17 Attend Phys: Remington Dukes Discharge: 01/31/17 Date of : [birth year] Report #: [id number] of the head is negative. ASSESSMENT AND PLAN: 1. Acute urinary tract infection. Urine will be sent for culture and continue with Rocephin. She does have associated leukocytosis. Her white blood cell count was just 10.3 five days ago. 2. Acute kidney injury on chronic kidney disease. Last known creatinine was 1.7 last week. This was likely due to poor p.o. intake. She also has known renal artery stenosis, and it is not clear if this has been evaluated here or at [facility]. 3. Known mediastinal mass and splenic mass. So far, her workup has been negative for malignancy after multiple biopsies. 4. Recent pulmonary embolism. Continue with Lovenox. 5. Diabetes type 2, glucose is stable, add sliding scale insulin. 6. History of breast cancer, status post mastectomy. 7. Generalized weakness. Her family attributes this to recently starting on Neurontin and amitriptyline. We will go ahead and decrease her dose of Neurontin, but the weakness is likely due to underlying urinary tract infection. She may need to have PT evaluate and possible placement as she does live alone. 8. Deep vein thrombosis prophylaxis. Continue with Lovenox. We will continue to follow the patient closely throughout the hospitalization and make changes based on clinical status. <ELECTRONICALLY SIGNED> By: TALA Santillan 02/01/17 0608 0955 1217 TALA Santillan /nt
--- NOTE | ~2017-01-29 | EKG ---
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[place] [facility] [place] 1930 Requested By: Louise Ferris Order Number: [id number] MD: Waylon Martinez Measurements Intervals [place] Rate: 83 P: 69 IN: 133 QRS: 24 QRSD: 86 T: 52 QT: 366 QTc: 430 Interpretive Statements Sinus rhythm Left ventricular hypertrophy Nonspecific T abnormalities, anterior leads Compared to ECG 01/21/2017 11:59:20 No significant changes Electronically Signed On 01-30-2017 11:50:50 CDT by Waylon Martinez [email or web address] <ELECTRONICALLY SIGNED> By: Waylon Martinez MD, [facility] 01/30/17 1150 2126 25 Waylon Martinez MD, FAC /EPI
[2017-01-29 20:48] VITALS: BP 138/58
[~2017-01-29 20:48] MED LIST changes: +CLONIDINE0.1 PO; +HYDROCODON-ACE1 EAC7 PO
[2017-01-29] MEDS ORDERED: ZANAFLEX4 MG PO (20:57)
[2017-01-29 21:09] LABS: HEMATOCRIT 33.5 % (37.0-47.0); MCH 26.7 pg (26.0-34.0); MCHC 32.8 g/dL (28.0-37.0); MCV 81.4 fL (80.0-100.0); PLATELET COUNT 252 thou/uL (150-400); RBC 4.11 mil/uL (4.20-5.00); RDW 15.7 % (10.5-14.5); WBC 24.3 thou/uL (4.0-11.0)
[2017-01-29 21:15] LABS: MANUAL DIFF YES
[2017-01-29 21:26] LABS: URINE BILIRUBIN NEGATIVE (Negative); URINE BLOOD 2+ (Negative); URINE COLOR YELLOW; URINE GLUCOSE-RANDOM* NEGATIVE (Negative); URINE KETONES NEGATIVE (Negative); URINE NITRITE NEGATIVE (Negative); URINE PROTEIN (DIPSTICK) TRACE (Negative); URINE SPECIFIC GRAVITY <= 1.005 (1.003-1.035)
[2017-01-29 21:29] LABS: ALBUMIN 2.8 g/dL (3.4-5.0); ALKALINE PHOSPHATASE 120 U/L (46-116); ANION GAP 13 mmol/L (7-16); BUN 31 mg/dL (7-18); CALCIUM 8.8 mg/dL (8.5-10.1); CHLORIDE 101 mmol/L (98-107); CO2 21 mmol/L (21-32); CREATININE 2.3 mg/dL (0.6-1.0); GLUCOSE 138 mg/dL (74-106); NT-PRO BRAIN NAT PEPTIDE 2135 pg/mL (<300); POTASSIUM 4.9 mmol/L (3.5-5.1); SGOT 73 U/L (15-37); SGPT 55 U/L (30-65); SODIUM 135 mmol/L (136-145); TOTAL BILIRUBIN 0.6 mg/dL (<0.1-1.0); TOTAL PROTEIN 7.5 g/dL (6.4-8.2); TROPONIN-I < 0.04 ng/mL (<0.04-0.07)
[2017-01-29 21:34] LABS: CASTS None Seen /LPF (None Seen); SQUAMOUS 0-3 Few /LPF (0-3); URINE WBC >25 Many /HPF (0-5); WBC CLUMPS Moderate (None Seen)
[2017-01-29 21:35] LABS: BACTERIA >30 Many /HPF (None Seen); CRYSTALS None Seen /LPF (None Seen)
[2017-01-29 21:40] LABS: ABSOLUTE NEUTROPHILS 19.7 thou/uL (1.4-8.2); TOTAL CELL COUNT 100
[2017-01-29 22:06] LABS: INR 1.1; PROTIME 11.4 Seconds (9.3-11.4)
[2017-01-29 22:58] VITALS: BP 138/58
[2017-01-29 23:25] VITALS: BP 142/61
[2017-01-30 03:44] VITALS: BP 127/54
[2017-01-30 04:41] LABS: HEMATOCRIT 29.9 % (37.0-47.0); HEMOGLOBIN 9.9 gm/dL (12.0-15.0); MCH 27.2 pg (26.0-34.0); MCHC 33.2 g/dL (28.0-37.0); MCV 81.9 fL (80.0-100.0); RBC 3.65 mil/uL (4.20-5.00); RDW 15.3 % (10.5-14.5); WBC 20.4 thou/uL (4.0-11.0)
[2017-01-30 04:50] LABS: CALCIUM 8.5 mg/dL (8.5-10.1); CREATININE 2.3 mg/dL (0.6-1.0); POTASSIUM 4.6 mmol/L (3.5-5.1)
[2017-01-30 09:15] VITALS: BP 133/68
[2017-01-30 15:26] VITALS: BP 113/42
[2017-01-30 18:59] VITALS: BP 124/50
[2017-01-31 05:28] LABS: ABSOLUTE NEUTROPHILS 10.7 thou/uL (1.4-8.2); BASOPHILS 0.4 % (0.0-2.0); HEMATOCRIT 29.9 % (37.0-47.0); HEMOGLOBIN 9.8 gm/dL (12.0-15.0); LYMPHOCYTES 16.3 % (24.0-44.0); MCH 26.7 pg (26.0-34.0); MCHC 32.9 g/dL (28.0-37.0); MCV 81.3 fL (80.0-100.0); MONOCYTES 11.1 % (1.0-8.0); PLATELET COUNT 244 thou/uL (150-400); POLYS 71.2 % (36.0-66.0); RBC 3.68 mil/uL (4.20-5.00); RDW 15.2 % (10.5-14.5)
[2017-01-31 05:32] LABS: MANUAL DIFF NO
[2017-01-31 05:51] LABS: ALBUMIN 2.4 g/dL (3.4-5.0); CALCIUM 8.5 mg/dL (8.5-10.1); CREATININE 1.8 mg/dL (0.6-1.0); POTASSIUM 4.6 mmol/L (3.5-5.1); TOTAL BILIRUBIN 0.7 mg/dL (<0.1-1.0); TOTAL PROTEIN 7.1 g/dL (6.4-8.2)
[2017-01-31 07:28] VITALS: BP 135/53
[2017-01-31 11:08] VITALS: BP 127/49
[2017-01-31 15:03] VITALS: BP 117/54
[2017-01-31] MEDS ORDERED: CARAFATE 1 GM TA1 GM PO (15:49)
== END 2017-01-31 17:45 | disposition short-term general hospital (02) | DRG 871 ==
LOC: ER 20:48 → EROBS 22:17 → 4S 22:17 → EROBS 22:17 → 4S 22:59
PROVIDERS: Internal Medicine Endocrinology, Diabetes & Metabolism; Nurse Practitioner Acute Care; Nurse Practitioner Family
DX: A41.9 Sepsis, unspecified organism (principal); N17.1 Acute kidney failure with acute cortical necrosis; E43 Unspecified severe protein-calorie malnutrition; N39.0 Urinary tract infection, site not specified; R04.2 Hemoptysis; K21.9 Gastro-esophageal reflux disease without esophagitis; I12.9 Hypertensive chronic kidney disease with stage 1 through stage 4 chronic kidney disease, or unspecified chronic kidney disease; F03.90 Unspecified dementia, unspecified severity, without behavioral disturbance, psychotic disturbance, mood disturbance, and anxiety; F41.9 Anxiety disorder, unspecified; H91.90 Unspecified hearing loss, unspecified ear; F17.210 Nicotine dependence, cigarettes, uncomplicated; N18.3 Chronic kidney disease, stage 3 (moderate); E11.22 Type 2 diabetes mellitus with diabetic chronic kidney disease; R16.1 Splenomegaly, not elsewhere classified; R59.0 Localized enlarged lymph nodes; Z87.11 Personal history of peptic ulcer disease; Z90.12 Acquired absence of left breast and nipple; Z87.81 Personal history of (healed) traumatic fracture; Z90.49 Acquired absence of other specified parts of digestive tract; Z82.49 Family history of ischemic heart disease and other diseases of the circulatory system; Z80.9 Family history of malignant neoplasm, unspecified; Z85.3 Personal history of malignant neoplasm of breast; Z86.711 Personal history of pulmonary embolism; Z87.311 Personal history of (healed) other pathological fracture
CPT/HCPCS: 10100